=== PATIENT | female | born 1965 | race Caucasian/White ===

== ENCOUNTER → 2025-08-31 | Outpatient (CLI) | payer OTHER ==
[~2025-08-31] MED LIST: HYDSUL200
[2025-09-02 09:35] LABS: Stool Occult Blood Guaiac 1 Neg (Neg)
== END ==
LOC: LAB 16:30 → LAB SHORT 16:30 → LAB FUT 08-24 12:50
PROVIDERS: Nurse Practitioner Family
DX: Z00.01 Encounter for general adult medical examination with abnormal findings (principal); Z12.11 Encounter for screening for malignant neoplasm of colon; L93.2 Other local lupus erythematosus; R53.82 Chronic fatigue, unspecified
CPT/HCPCS: 82270